=== PATIENT | female | born 1970 | race Caucasian/White ===

== ENCOUNTER 2016-12-27 11:22 | Emergency (ER) | payer OTHER ==
[2016-12-27 12:03] LABS: BASO % 0.7 % (0.0-1.0); CALCIUM LEVEL 9.3 MG/DL (8.5-10.1); CREATININE FOR GFR 1.7 MG/DL (0.55-1.02); EOS # 0.1 K/mm3 (0.0-0.50); EOS % 1.9 % (0.0-3.0); GLOMERULAR FILTRATION RATE 34.3 (>58); LARGE UNSTAINED CELL # 0.2 K/mm3 (0.0-0.4); LARGE UNSTAINED CELL % 3.6 % (0.0-4.0); LYMPH # 0.5 K/mm3 (1.5-4.5); LYMPH % 12.1 % (24.0-44.0); MEAN CORPUSCULAR HEMOGLOBIN 26.5 pg (27.0-33.0); MEAN CORPUSCULAR HGB CONC 32.5 g/dl (32.0-36.5); MEAN CORPUSCULAR VOLUME 81.4 fl (80.0-96.0); MONO # 0.4 K/mm3 (0.0-0.8); MONO % 8.6 % (0.0-5.0); NEUTROPHILS % 73.2 % (36.0-66.0); PLATELET COUNT, AUTOMATED 253 k/mm3 (150-450); POTASSIUM SERUM 3.7 MEQ/L (3.5-5.1); RED CELL DISTRIBUTION WIDTH 13.3 % (11.5-14.5); WHITE BLOOD COUNT 4.1 K/mm3 (4.0-10.0)
--- NOTE | 2016-12-27 12:21 | REP ---
Clinical: Shortness of breath . Comparison: None . Findings: The mediastinum and cardiac silhouette are stable and within normal limits for portable technique. The lung amor are clear without acute consolidation, effusion, or pneumothorax. Skeletal structures are intact. Impression: Normal portable chest x-ray Signed by Bakari Velazco MD 12/27/2016 12:13 P
[2016-12-27 12:53] LABS: ALBUMIN 3.6 GM/DL (3.2-5.2); BILIRUBIN,DIRECT 0.1 MG/DL (0.0-0.2); BILIRUBIN,TOTAL 0.4 MG/DL (0.2-1.0); TOTAL PROTEIN 7.2 GM/DL (6.4-8.2)
[2016-12-27] MEDS ORDERED: OSELTAMIVIR PHOSPHATE 75 MG CAP (TAMIFLU) As Ordered ONE (13:49)
--- NOTE | 2016-12-27 14:40 | EDDOCDS ---
Physician Documentation [facility] Name: Ebonie Ruiz Age: 46 yrs Sex: Female : 1970 Arrival Date: 12/27/2016 Time: 11:22 Bed 12 Private MD: Disposition: 12/27/16 14:22 Discharged to Home/Self Care. Impression: Influenza due to other identified influenza virus. - Condition is Stable. - Discharge Instructions: Influenza Adult, Influenza, Adult, [id number]. - Prescriptions for Tamiflu 75 mg Oral Capsule - take 1 capsule by ORAL route every 12 hours for 5 days; 10 capsule. - Medication Reconciliation, Local Pharmacy Hours form. - Follow up: Private Physician; When: your primary physician in [place] 24-48 hours recheck and recheck kidney function. - Problem is new. - Symptoms have improved. Historical: - Allergies: SULFA (SULFONAMIDES); - Home Meds: 1. none - PMHx: Non-Hodgkin's Lymphoma; - PSHx: none; - Social history: Smoking status: Patient states former smoker of tobacco. No barriers to communication noted, The patient speaks fluent [place], Speaks appropriately for age. - Family history: Not pertinent. - : The pt / caregiver states he / she is not on anticoagulants. Home medication list is obtained from the patient. - Exposure Risk Screening:: None identified. BACTERIOLOGIST MEDICAL: 12/27 11:35 LMP N/A - Irregular menses, due to chemotherapy hs1 Vital Signs: 11:35 BP 119 / 64; Pulse 91; Resp 18; Temp 97.2(O); Pulse Ox 98% ; Weight 101.15 kg / 223 hs1 lbs; Height 5 ft. 9 in. (175.26 cm); Pain 4/10; 14:30 BP 128 / 87; Pulse 88; Resp 18; Temp 97(O); Pulse Ox 100% ; Pain 3/10; cmb 11:35 Body Mass Index 32.93 (101.15 kg, 175.26 cm) hs1 MDM: 11:45 -Blood Culture (Adults Only), peripheral from different site, or from device/port/PICC sd1 etc. if present ordered. 11:45 Trimming Assembler/Pulse Ox/q 15 min VS ordered. sd1 11:45 IV Saline Lock ordered. sd1 11:45 Rhythm Strip to chart ordered. sd1 11:45 NS 0.9% 1000 ml IV at bolus once ordered. sd1 11:45 -Blood Culture Ordered. EDMS 11:45 B-Type Natiuretic Peptide Ordered. EDMS 11:45 Basic Metabolic Profile Ordered. EDMS 11:45 CBC with Diff Ordered. EDMS 11:45 Lactic Acid (Villalpando tube on ice) Ordered. EDMS 11:46 ECG WITH READING ER PHYS+CARDIAG ordered. EDMS 11:46 -Blood Culture (Adults Only), peripheral from different site, or from device/port/PICC lbd etc. if present complete. 11:48 Chest, 1 View Ordered. EDMS 11:55 BLOOD CULTURES Ordered. EDMS 12:11 Basic Metabolic Profile Reviewed. sd1 12:11 CBC with Diff Reviewed. sd1 12:35 B-Type Natiuretic Peptide Reviewed. sd1 12:35 Lactic Acid (Vill[place]pando tube on ice) Reviewed. sd1 12:35 Chest, 1 View Reviewed. sd1 12:37 -Influenza A&B Rapid Antigen - Nose Ordered. EDMS 12:42 LIVER PROFILE Ordered. EDMS 12:52 Basic Metabolic Profile Reviewed. sd1 12:52 NS 0.9% 1000 ml IV at bolus once ordered. sd1 12:58 Financial registration complete. mm15 13:30 Basic Metabolic Profile Reviewed. sd1 13:30 -Influenza A&B Rapid Antigen - Nose Reviewed. sd1 13:30 LIVER PROFILE Reviewed. sd1 13:31 Oseltamivir 75 mg PO once ordered. sd1 14:16 [facility] Payment Agreement was scanned into [employer] and attached to record. mm15 Administered Medications: 11:45 CANCELLED (Other Intervention Used): NS 0.9% 1000 ml IV at bolus once sd1 11:49 Drug: NS 0.9% 1000 ml [sodium chloride 0.9 % intravenous solution] Route: IV; Rate: hs1 bolus; Site: left antecubital; 14:39 Follow up: IV Status: Completed infusion; IV Intake: 1000ml hs1 13:00 Drug: NS 0.9% 1000 ml [sodium chloride 0.9 % injection solution] Route: IV; Rate: dsf bolus; Site: left antecubital; 14:39 Follow up: IV Status: Completed infusion; IV Intake: 1000ml hs1 13:55 Drug: Oseltamivir 75 mg [oseltamivir 75 mg capsule (1 caps)] Route: PO; hs1 Signatures: Dispatcher MedHost EDMS Mary Ann Asif MD MD sd1 Shelly Anand, Closet Builder Unit lbd Saumya Granados RN RN hs1 Carolann Shea mm15 Dee Wynn RN dsf The chart was reviewed and I authenticate all verbal orders and agree with the evaluation and treatment provided.Corrections: (The following items were deleted from the chart) 11:45 11:45 NS 0.9% 1000 ml IV at bolus once ordered. sd1 sd1 12:44 12:37 LIVER PROFILE+LAB ordered. EDMS EDMS 13:56 11:45 Oxygen at 4L/Min NC or Home dosage ordered. sd1 hs1 Attachments: 14:16 [facility] Payment Agreement mm15 MTDD
--- NOTE | 2016-12-27 14:40 | EDDOCDS ---
Nurse's Notes [facility] Name: Ebonie Ruiz Age: 46 yrs Sex: Female : 1970 Arrival Date: 12/27/2016 Time: : Bed 12 Private MD: Diagnosis: Influenza due to other identified influenza virus Presentation: 12/27 11:25 Presenting complaint: EMS states: eating breakfast at [employer] - called 911 because she hs1 wasn't feeling well. Has been sick for 2-3 days. Stomach off - dizziness. Diaphoretic per EMS. Low blood pressures per EMS. 100cc's IV NS given by EMS. Suicide/Homicide risk assessment- the patient denies having any suicidal and/or homicidal ideations and does not present with any other emotional, behavioral or mental health complaints. Status: Patient is not a consulting services project manager or dependent. Transition of care: patient was not received from another setting of care. Care prior to arrival: See EMS report. Saline lock initiated. Glucose check. 126 mg/dL. 11:25 Method Of Arrival: Ambulance hs1 11:25 Acuity: CHITRA Level 3 hs1 11:40 Adult Sepsis Screening: The patient does not have new or worsening altered mentation. hs1 Patient's respiratory rate is less than 22. Systolic blood pressure is greater than 100. Patient has a qSOFA score of 0- Negative Sepsis Screen. Triage Assessment: 11:37 General: Appears in no apparent distress, Behavior is cooperative. Pain: Location: achy hs1 all over. Pt Declines HIV testing. Neurological: Level of Consciousness is awake, alert, obeys commands. EENT: Reports nasal congestion nasal discharge. Cardiovascular: Capillary refill < 3 seconds Heart tones S1 S2 Edema is absent. Respiratory: Airway is patent Respiratory effort is even, unlabored, Respiratory pattern is regular, symmetrical, Breath sounds are clear bilaterally. GI: Abdomen is non- distended Bowel sounds present X 4 quads. Abd is soft and non tender X 4 quads. CONTINUOUS DRIER OPERATOR: 11:35 LMP N/A - Irregular menses, due to chemotherapy hs1 Historical: - Allergies: SULFA (SULFONAMIDES); - Home Meds: 1. none - PMHx: Non-Hodgkin's Lymphoma; - PSHx: none; - Social history: Smoking status: Patient states former smoker of tobacco. No barriers to communication noted, The patient speaks fluent Macedonian, Speaks appropriately for age. - Family history: Not pertinent. - : The pt / caregiver states he / she is not on anticoagulants. Home medication list is obtained from the patient. - Exposure Risk Screening:: None identified. Screenin:54 Screening information is obtained from the patient. Fall risk: No risks identified. hs1 Assistance ADL's: requires no assistance with activities of daily living. Abuse/DV Screen: The patient / caregiver reports he/she is: not in a situation that causes fear, pain or injury. Nutritional screening: No deficits noted. Advance Directives: There is no active DNR order. home support is adequate. Assessment: 12:40 General: Appears in no apparent distress, Behavior is appropriate for age, cooperative. hs1 Pain: Pain currently is 4 out of 10 on a pain scale. Quality of pain is described as aching. Neurological: No deficits noted. Respiratory: Airway is patent Respiratory effort is even, unlabored, Respiratory pattern is regular, symmetrical. GI: Abdomen is non- distended Denies vomiting. Derm: Skin is pink, warm & dry. normal. 13:55 General: Appears in no apparent distress, comfortable, Behavior is appropriate for age, hs1 cooperative. Pain: Denies pain. Neurological: No deficits noted. Respiratory: Airway is patent Respiratory effort is even, unlabored, Respiratory pattern is regular, symmetrical. Derm: Skin is pink, warm & dry. normal. 14:26 General: Appears in no apparent distress, comfortable, Behavior is appropriate for age, hs1 cooperative. Pain: Denies pain. Cardiovascular: Rhythm is regular. Respiratory: Airway is patent Respiratory effort is even, unlabored, Respiratory pattern is regular, symmetrical. GI: Abdomen is flat, non- distended. : up and ambulatory to the bathroom. Derm: Skin is pink, warm & dry. normal. 14:38 General: Appears in no apparent distress, comfortable, Behavior is appropriate for age, hs1 cooperative. Pain: Denies pain. Vital Signs: 11:35 BP 119 / 64; Pulse 91; Resp 18; Temp 97.2(O); Pulse Ox 98% ; Weight 101.15 kg; Height 5 hs1 ft. 9 in. (175.26 cm); Pain 4/10; 14:30 BP 128 / 87; Pulse 88; Resp 18; Temp 97(O); Pulse Ox 100% ; Pain 3/10; cmb 11:35 Body Mass Index 32.93 (101.15 kg, 175.26 cm) hs1 Vitals: 11:35 Log In Time N/A - ambulance arrival. hs1 ED Course: 11:23 Patient visited by Shelly Anand, Animal Caretaker Supervisor. lbd 11:23 Patient moved to Waiting lbd 11:23 Patient moved to 12 lbd 11:29 Triage Initiated hs1 11:37 Mary Ann Asif MD is Attending Physician. sd1 11:39 Maintain field IV. Dressing intact. Good blood return noted. Site clean & dry. Gauge & hs1 site: 18 gauge in left AC. 11:47 Patient visited by Mary Ann Asif MD. sd1 11:53 Lactic Acid (Villalpando tube on ice) Sent. hs1 11:53 -Blood Culture Sent. hs1 11:54 The patient / caregiver is instructed regarding the plan of care and ED course. hs1 12:09 EKG done. (by ED staff). Reviewed by Mary Ann Asif MD. cmb 12:12 Patient visited by Alicia Gage. cmb 12:23 Chest, 1 View Returned. EDMS 13:03 Patient visited by Saumya Granados, TRISTAN. hs1 13:03 Patient visited by Saumya Granados, TRISTAN. hs1 13:56 Patient visited by Saumya Granados, TRISTAN. hs1 14:16 [facility] Payment Agreement was scanned into [employer] and attached to record. mm15 14:30 Patient visited by Alicia Gage. cmb 14:38 Discontinued IV lock intact, bleeding controlled, pressure dressing applied, No hs1 redness/swelling at site. No procedures done that require assistance. Administered Medications: 11:45 CANCELLED (Other Intervention Used): NS 0.9% 1000 ml IV at bolus once sd1 11:49 Drug: NS 0.9% 1000 ml [sodium chloride 0.9 % intravenous solution] Route: IV; Rate: hs1 bolus; Site: left antecubital; 14:39 Follow up: IV Status: Completed infusion; IV Intake: 1000ml hs1 13:00 Drug: NS 0.9% 1000 ml [sodium chloride 0.9 % injection solution] Route: IV; Rate: dsf bolus; Site: left antecubital; 14:39 Follow up: IV Status: Completed infusion; IV Intake: 1000ml hs1 13:55 Drug: Oseltamivir 75 mg [oseltamivir 75 mg capsule (1 caps)] Route: PO; hs1 Intake: 14:39 IV: 1000.00ml; Total: 1000.00ml. hs1 14:39 IV: 1000.00ml; Total: 2000.00ml. hs1 Order Results: Lab Order: B-Type Natiuretic Peptide; SPEC'M 12/27/16 11:33 Test: BRAIN NATRIURETIC PEPTIDE; Value: 24.8; Range: <100; Units: PG/ML; Status: F Lab Order: Basic Metabolic Profile; SPEC'M 12/27/16 11:33 Test: GLUCOSE, FASTING; Value: 113; Range: 70-105; Abnormal: Above high normal; Units: MG/DL; Status: F Test: BLOOD UREA NITROGEN; Value: 22; Range: 7-18; Abnormal: Above high normal; Units: MG/DL; Status: F Test: CREATININE FOR GFR; Value: 1.70; Range: 0.55-1.02; Abnormal: Above high normal; Units: MG/DL; Status: F Test: GLOMERULAR FILTRATION RATE; Value: 34.3; Range: >58; Abnormal: Below low normal; Status: F Test: SODIUM LEVEL; Value: 142; Range: 136-145; Units: MEQ/L; Status: F Test: POTASSIUM SERUM; Value: 3.7; Range: 3.5-5.1; Units: MEQ/L; Status: F Test: CHLORIDE LEVEL; Value: 108; Range: 98-107; Abnormal: Above high normal; Units: MEQ/L; Status: F Test: CARBON DIOXIDE LEVEL; Value: 21; Range: 21-32; Units: MEQ/L; Status: F Test: ANION GAP; Value: 13; Range: 8-16; Units: MEQ/L; Status: F Test: CALCIUM LEVEL; Value: 9.3; Range: 8.5-10.1; Units: MG/DL; Status: F Test Note: ; Units are mL/min/1.73 m2 Chronic Kidney Disease Staging per NKF: Stage I & II GFR >=60 Normal to Mildly Decreased Stage III GFR 30-59 Moderately Decreased Stage IV GFR 15-29 Severely Decreased Stage V GFR <15 Very Little GFR Left ESRD GFR <15 on FISHING ROD MECHANIC Lab Order: CBC with Diff; SPEC'M 12/27/16 11:33 Test: WHITE BLOOD COUNT; Value: 4.1; Range: 4.0-10.0; Units: K/mm3; Status: F Test: RED BLOOD COUNT; Value: 4.97; Range: 4.00-5.40; Units: M/mm3; Status: F Test: HEMOGLOBIN; Value: 13.2; Range: 12.0-16.0; Units: g/dl; Status: F Test: HEMATOCRIT; Value: 40.5; Range: 36.0-47.0; Units: %; Status: F Test: MEAN CORPUSCULAR VOLUME; Value: 81.4; Range: 80.0-96.0; Units: fl; Status: F Test: MEAN CORPUSCULAR HEMOGLOBIN; Value: 26.5; Range: 27.0-33.0; Abnormal: Below low normal; Units: pg; Status: F Test: MEAN CORPUSCULAR HGB CONC; Value: 32.5; Range: 32.0-36.5; Units: g/dl; Status: F Test: RED CELL DISTRIBUTION WIDTH; Value: 13.3; Range: 11.5-14.5; Units: %; Status: F Test: PLATELET COUNT, AUTOMATED; Value: 253; Range: 150-450; Units: k/mm3; Status: F Test: NEUTROPHILS %; Value: 73.2; Range: 36.0-66.0; Abnormal: Above high normal; Units: %; Status: F Test: LYMPH %; Value: 12.1; Range: 24.0-44.0; Abnormal: Below low normal; Units: %; Status: F Test: MONO %; Value: 8.6; Range: 0.0-5.0; Abnormal: Above high normal; Units: %; Status: F Test: EOS %; Value: 1.9; Range: 0.0-3.0; Units: %; Status: F Test: BASO %; Value: 0.7; Range: 0.0-1.0; Units: %; Status: F Test: LARGE UNSTAINED CELL %; Value: 3.6; Range: 0.0-4.0; Units: %; Status: F Test: NEUTROPHILS #; Value: 3.0; Range: 1.8-7.7; Units: K/mm3; Status: F Test: LYMPH #; Value: 0.5; Range: 1.5-4.5; Abnormal: Below low normal; Units: K/mm3; Status: F Test: MONO #; Value: 0.4; Range: 0.0-0.8; Units: K/mm3; Status: F Test: EOS #; Value: 0.1; Range: 0.0-0.50; Units: K/mm3; Status: F Test: BASO #; Value: 0.0; Range: 0.0-0.2; Units: K/mm3; Status: F Test: LARGE UNSTAINED CELL #; Value: 0.2; Range: 0.0-0.4; Units: K/mm3; Status: F Lab Order: Lactic Acid (Villalpando tube on ice); SPEC'M 12/27/16 11:50 Test: LACTIC ACID SEPSIS PROTOCOL; Value: 1.1; Range: 0.4-2.0; Units: MMOL/L; Status: F Lab Order: -Influenza A&B Rapid Antigen - Nose; SPEC'M 12/27/16 11:33 Test: INFLUENZA A RAPID SCR by ICA; Value: INFLUENZA A RESULTS POSITIVE; Abnormal: Abnormal; Status: F Test: INFLUENZA A RAPID SCR by ICA; Value: Comments:; Status: F Test: INFLUENZA B RAPID SCR by ICA; Value: INFLUENZA B RESULTS NEGATIVE; Status: F Test Note: ; The Influenza test is a direct rapid immunoassay for the qualitative detection of Influenza viral antigen. Cell culture (Viral Culture) testing should be considered to confirm NEGATIVE results and to assist in detecting other viruses that can provide similar clinical symptoms. Please contact the lab within 24 hours ([phone]) if confirmatory testing is desired. Lab Order: LIVER PROFILE; SPEC'M 12/27/16 11:33 Test: AST/SGOT; Value: 36; Range: 15-37; Units: U/L; Status: F Test: ALT/SGPT; Value: 40; Range: 12-78; Units: U/L; Status: F Test: ALKALINE PHOSPHATASE; Value: 71; Range: 45-117; Units: U/L; Status: F Test: BILIRUBIN,TOTAL; Value: 0.4; Range: 0.2-1.0; Units: MG/DL; Status: F Test: BILIRUBIN,DIRECT; Value: 0.1; Range: 0.0-0.2; Units: MG/DL; Status: F Test: TOTAL PROTEIN; Value: 7.2; Range: 6.4-8.2; Units: GM/DL; Status: F Test: ALBUMIN; Value: 3.6; Range: 3.2-5.2; Units: GM/DL; Status: F Test: ALBUMIN/GLOBULIN RATIO; Value: 1.00; Range: 1.00-1.93; Status: F Radiology Order: Chest, 1 View Test: Chest, 1 View REASON FOR EXAMINATION: Shortness of Breath; Clinical: Shortness of breath .; ; Comparison: None .; ; Findings:; The mediastinum and cardiac silhouette are stable and within normal limits for; portable technique. The lung amor are clear without acute consolidation,; effusion, or pneumothorax. Skeletal structures are intact.; ; Impression:; Normal portable chest x-ray; ; ; Signed by; Bakari Velazco MD 12/27/2016 12:13 P; Outcome: 14:22 Discharge ordered by Provider. sd1 14:39 Discharge Assessment: Patient awake, alert and oriented x 3. No cognitive and/or hs1 functional deficits noted. Patient verbalized understanding of disposition instructions. patient administered narcotics - no. The following High Risk Discharge criteria are identified: None. Discharged to home ambulatory. Condition: stable. Discharge instructions given to patient, Instructed on discharge instructions, follow up and referral plans. medication usage, Demonstrated understanding of instructions, medications, Pt was receptive of discharge instructions/ teaching. Prescriptions given X 1. No special radiology studies were completed. Property sent home with patient. 14:39 Patient left the ED. hs1 Signatures: Dispatcher MedHost EDMS Mary Ann Asif MD MD sd1 Shelly Anand, Animal Caretaker Supervisor Unit lbd Saumya Granados RN RN hs1 Dee Wynn RN RN dsf Alicia Gage Marlynn mm15 MTDD
--- NOTE | 2016-12-28 19:05 | ECGEPIP ---
Stationary ECG Study [facility] - ED Test Date: 2016-12-27 Pat Name: NUPUR LIANG Department: Room: - Gender: F Supervisor Brake Repair: yvette : 1970 Requested By: Mary Ann Asif Order Number: [id number] Reading MD: Mary Ann Asif Measurements Intervals [place] Rate: 83 P: 52 WI: 141 QRS: 39 QRSD: 73 T: 23 QT: 377 QTc: 445 Interpretive Statements SINUS RHYTHM NONSPECIFIC T-WAVE ABNORMALITY NO PRIOR FOR COMPARISON Electronically Signed On 12-28-2016 19:05:12 EST by Mary Ann Asif
--- NOTE | 2016-12-29 15:40 | EDDOCDS ---
Physician Documentation [facility] Name: Ebonie Ruiz Age: 46 yrs Sex: Female : 1970 Arrival Date: 12/27/2016 Time: 11:22 Bed 12 Private MD: Disposition: 12/27/16 14:22 Discharged to Home/Self Care. Impression: Influenza due to other identified influenza virus. - Condition is Stable. - Discharge Instructions: Influenza Adult, Influenza, Adult, [id number]. - Prescriptions for Tamiflu 75 mg Oral Capsule - take 1 capsule by ORAL route every 12 hours for 5 days; 10 capsule. - Medication Reconciliation, Local Pharmacy Hours form. - Follow up: Private Physician; When: your primary physician in [place] 24-48 hours recheck and recheck kidney function. - Problem is new. - Symptoms have improved. Historical: - Allergies: SULFA (SULFONAMIDES); - Home Meds: 1. none - PMHx: Non-Hodgkin's Lymphoma; - PSHx: none; - Social history: Smoking status: Patient states former smoker of tobacco. No barriers to communication noted, The patient speaks fluent [place], Speaks appropriately for age. - Family history: Not pertinent. - : The pt / caregiver states he / she is not on anticoagulants. Home medication list is obtained from the patient. - Exposure Risk Screening:: None identified. 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 9 in. (175.26 cm); Pain 4/10; 14:30 BP 128 / 87; Pulse 88; Resp 18; Temp 97(O); Pulse Ox 100% ; Pain 3/10; cmb 11:35 Body Mass Index 32.93 (101.15 kg, 175.26 cm) hs1 MDM: 11:45 -Blood Culture (Adults Only), peripheral from different site, or from device/port/PICC sd1 etc. if present ordered. 11:45 Hair Mixer/Pulse Ox/q 15 min VS ordered. sd1 11:45 IV Saline Lock ordered. sd1 11:45 Rhythm Strip to chart ordered. sd1 11:45 NS 0.9% 1000 ml IV at bolus once ordered. sd1 11:45 -Blood Culture Ordered. EDMS 11:45 B-Type Natiuretic Peptide Ordered. EDMS 11:45 Basic Metabolic Profile Ordered. EDMS 11:45 CBC with Diff Ordered. EDMS 11:45 Lactic Acid (Villalpando tube on ice) Ordered. EDMS 11:46 ECG WITH READING ER PHYS+CARDIAG ordered. EDMS 11:46 -Blood Culture (Adults Only), peripheral from different site, or from device/port/PICC lbd etc. if present complete. 11:48 Chest, 1 View Ordered. EDMS 11:55 BLOOD CULTURES Ordered. EDMS 12:11 Basic Metabolic Profile Reviewed. sd1 12:11 CBC with Diff Reviewed. sd1 12:35 B-Type Natiuretic Peptide Reviewed. sd1 12:35 Lactic Acid (Villalpando tube on ice) Reviewed. sd1 12:35 Chest, 1 View Reviewed. sd1 12:37 -Influenza A&B Rapid Antigen - Nose Ordered. EDMS 12:42 LIVER PROFILE Ordered. EDMS 12:52 Basic Metabolic Profile Reviewed. sd1 12:52 NS 0.9% 1000 ml IV at bolus once ordered. sd1 12:58 Financial registration complete. mm15 13:30 Basic Metabolic Profile Reviewed. sd1 13:30 -Influenza A&B Rapid Antigen - Nose Reviewed. sd1 13:30 LIVER PROFILE Reviewed. sd1 13:31 Oseltamivir 75 mg PO once ordered. sd1 14:16 [facility] Payment Agreement was scanned into [employer] and attached to record. mm15 12/29 08:14 T-Sheet-- Draft Copy was scanned into [employer] and attached to record. lg 08:15 ECG/EKG was scanned into [employer] and attached to record. lg Administered Medications: 12/27 11:45 CANCELLED (Other Intervention Used): NS 0.9% 1000 ml IV at bolus once sd1 11:49 Drug: NS 0.9% 1000 ml [sodium chloride 0.9 % intravenous solution] Route: IV; Rate: hs1 bolus; Site: left antecubital; 14:39 Follow up: IV Status: Completed infusion; IV Intake: 1000ml hs1 13:00 Drug: NS 0.9% 1000 ml [sodium chloride 0.9 % injection solution] Route: IV; Rate: dsf bolus; Site: left antecubital; 14:39 Follow up: IV Status: Completed infusion; IV Intake: 1000ml hs1 13:55 Drug: Oseltamivir 75 mg [oseltamivir 75 mg capsule (1 caps)] Route: PO; hs1 Signatures: Dispatcher [employer] EDMS Mary Ann Asif MD MD sd1 Shelly Anand, Technical Manager Unit lbd Lisa Dos Santos, Reg Reg lg Saumya Granados RN RN hs1 Carolann Shea mm15 Dee Wynn RN dsf The chart was reviewed and I authenticate all verbal orders and agree with the evaluation and treatment provided.Corrections: (The following items were deleted from the chart) 11:45 11:45 NS 0.9% 1000 ml IV at bolus once ordered. sd1 sd1 12:44 12:37 LIVER PROFILE+LAB ordered. EDMS EDMS 13:56 11:45 Oxygen at 4L/Min NC or Home dosage ordered. sd1 hs1 Attachments: 14:16 [facility] Payment Agreement mm15 12/29 08:14 T-Sheet-- Draft Copy lg 08:15 ECG/EKG lg Chart Complete MTDD
--- NOTE | 2016-12-29 15:40 | EDDOCDS ---
Physician Documentation [facility] Name: Ebonie Ruiz Age: 46 yrs Sex: Female : 1970 Arrival Date: 12/27/2016 Time: 11:22 Bed 12 Private MD: Disposition: 12/27/16 14:22 Discharged to Home/Self Care. Impression: Influenza due to other identified influenza virus. - Condition is Stable. - Discharge Instructions: Influenza Adult, Influenza, Adult, [id number]-Rqby. - Prescriptions for Tamiflu 75 mg Oral Capsule - take 1 capsule by ORAL route every 12 hours for 5 days; 10 capsule. - Medication Reconciliation, Local Pharmacy Hours form. - Follow up: Private Physician; When: your primary physician in [place] 24-48 hours recheck and recheck kidney function. - Problem is new. - Symptoms have improved. Historical: - Allergies: SULFA (SULFONAMIDES); - Home Meds: 1. none - PMHx: Non-Hodgkin's Lymphoma; - PSHx: none; - Social history: Smoking status: Patient states former smoker of tobacco. No barriers to communication noted, The patient speaks fluent Grenadian, Speaks appropriately for age. - Family history: Not pertinent. - : The pt / caregiver states he / she is not on anticoagulants. Home medication list is obtained from the patient. - Exposure Risk Screening:: None identified. 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 9 in. (175.26 cm); Pain 4/10; 14:30 BP 128 / 87; Pulse 88; Resp 18; Temp 97(O); Pulse Ox 100% ; Pain 3/10; cmb 11:35 Body Mass Index 32.93 (101.15 kg, 175.26 cm) hs1 MDM: 11:45 -Blood Culture (Adults Only), peripheral from different site, or from device/port/PICC sd1 etc. if present ordered. 11:45 Players Assistant/Pulse Ox/q 15 min VS ordered. sd1 11:45 IV Saline Lock ordered. sd1 11:45 Rhythm Strip to chart ordered. sd1 11:45 NS 0.9% 1000 ml IV at bolus once ordered. sd1 11:45 -Blood Culture Ordered. EDMS 11:45 B-Type Natiuretic Peptide Ordered. EDMS 11:45 Basic Metabolic Profile Ordered. EDMS 11:45 CBC with Diff Ordered. EDMS 11:45 Lactic Acid (Villalpando tube on ice) Ordered. EDMS 11:46 ECG WITH READING ER PHYS+CARDIAG ordered. EDMS 11:46 -Blood Culture (Adults Only), peripheral from different site, or from device/port/PICC lbd etc. if present complete. 11:48 Chest, 1 View Ordered. EDMS 11:55 BLOOD CULTURES Ordered. EDMS 12:11 Basic Metabolic Profile Reviewed. sd1 12:11 CBC with Diff Reviewed. sd1 12:35 B-Type Natiuretic Peptide Reviewed. sd1 12:35 Lactic Acid (Villalpando tube on ice) Reviewed. sd1 12:35 Chest, 1 View Reviewed. sd1 12:37 -Influenza A&B Rapid Antigen - Nose Ordered. EDMS 12:42 LIVER PROFILE Ordered. EDMS 12:52 Basic Metabolic Profile Reviewed. sd1 12:52 NS 0.9% 1000 ml IV at bolus once ordered. sd1 12:58 Financial registration complete. mm15 13:30 Basic Metabolic Profile Reviewed. sd1 13:30 -Influenza A&B Rapid Antigen - Nose Reviewed. sd1 13:30 LIVER PROFILE Reviewed. sd1 13:31 Oseltamivir 75 mg PO once ordered. sd1 14:16 [facility] Payment Agreement was scanned into [employer] and attached to record. mm15 12/29 08:14 T-Sheet-- Draft Copy was scanned into [employer] and attached to record. lg 08:15 ECG/EKG was scanned into [employer] and attached to record. lg Administered Medications: 12/27 11:45 CANCELLED (Other Intervention Used): NS 0.9% 1000 ml IV at bolus once sd1 11:49 Drug: NS 0.9% 1000 ml [sodium chloride 0.9 % intravenous solution] Route: IV; Rate: hs1 bolus; Site: left antecubital; 14:39 Follow up: IV Status: Completed infusion; IV Intake: 1000ml hs1 13:00 Drug: NS 0.9% 1000 ml [sodium chloride 0.9 % injection solution] Route: IV; Rate: dsf bolus; Site: left antecubital; 14:39 Follow up: IV Status: Completed infusion; IV Intake: 1000ml hs1 13:55 Drug: Oseltamivir 75 mg [oseltamivir 75 mg capsule (1 caps)] Route: PO; hs1 Signatures: Dispatcher [employer] EDMS Mary Ann Asif MD MD sd1 Shelly Anand, Data Integrity Analyst Unit lbd Lisa Dos Santos, Reg Reg lg Saumya Granados RN RN hs1 Carolann Shea mm15 Dee Wynn RN dsf The chart was reviewed and I authenticate all verbal orders and agree with the evaluation and treatment provided.Corrections: (The following items were deleted from the chart) 11:45 11:45 NS 0.9% 1000 ml IV at bolus once ordered. sd1 sd1 12:44 12:37 LIVER PROFILE+LAB ordered. EDMS EDMS 13:56 11:45 Oxygen at 4L/Min NC or Home dosage ordered. sd1 hs1 Attachments: 14:16 [facility] Payment Agreement mm15 12/29 08:14 T-Sheet-- Draft Copy lg 08:15 ECG/EKG lg Chart Complete MTDD
--- NOTE | 2016-12-29 15:41 | EDDOCDS ---
Nurse's Notes [facility] Name: Nupur Ruiz Age: 46 yrs Sex: Female : 1970 Arrival Date: 12/27/2016 Time: : Bed 12 Private MD: Diagnosis: Influenza due to other identified influenza virus Presentation: 12/27 11:25 Presenting complaint: EMS states: eating breakfast at [employer] - called 911 because she hs1 wasn't feeling well. Has been sick for 2-3 days. Stomach off - dizziness. Diaphoretic per EMS. Low blood pressures per EMS. 100cc's IV NS given by EMS. Suicide/Homicide risk assessment- the patient denies having any suicidal and/or homicidal ideations and does not present with any other emotional, behavioral or mental health complaints. Status: Patient is not a media services specialist or dependent. Transition of care: patient was not received from another setting of care. Care prior to arrival: See EMS report. Saline lock initiated. Glucose check. 126 mg/dL. 11:25 Method Of Arrival: Ambulance hs1 11:25 Acuity: CHITRA Level 3 hs1 11:40 Adult Sepsis Screening: The patient does not have new or worsening altered mentation. hs1 Patient's respiratory rate is less than 22. Systolic blood pressure is greater than 100. Patient has a qSOFA score of 0- Negative Sepsis Screen. Triage Assessment: 11:37 General: Appears in no apparent distress, Behavior is cooperative. Pain: Location: achy hs1 all over. Pt Declines HIV testing. Neurological: Level of Consciousness is awake, alert, obeys commands. EENT: Reports nasal congestion nasal discharge. Cardiovascular: Capillary refill < 3 seconds Heart tones S1 S2 Edema is absent. Respiratory: Airway is patent Respiratory effort is even, unlabored, Respiratory pattern is regular, symmetrical, Breath sounds are clear bilaterally. GI: Abdomen is non- distended Bowel sounds present X 4 quads. Abd is soft and non tender X 4 quads. 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 none - PMHx: Non-Hodgkin's Lymphoma; - PSHx: none; - Social history: Smoking status: Patient states former smoker of tobacco. No barriers to communication noted, The patient speaks fluent [place]ine[place], Speaks appropriately for age. - Family history: Not pertinent. - : The pt / caregiver states he / she is not on anticoagulants. Home medication list is obtained from the patient. - Exposure Risk Screening:: None identified. Screenin:54 Screening information is obtained from the patient. Fall risk: No risks identified. hs1 Assistance ADL's: requires no assistance with activities of daily living. Abuse/DV Screen: The patient / caregiver reports he/she is: not in a situation that causes fear, pain or injury. Nutritional screening: No deficits noted. Advance Directives: There is no active DNR order. home support is adequate. Assessment: 12:40 General: Appears in no apparent distress, Behavior is appropriate for age, cooperative. hs1 Pain: Pain currently is 4 out of 10 on a pain scale. Quality of pain is described as aching. Neurological: No deficits noted. Respiratory: Airway is patent Respiratory effort is even, unlabored, Respiratory pattern is regular, symmetrical. GI: Abdomen is non- distended Denies vomiting. Derm: Skin is pink, warm & dry. normal. 13:55 General: Appears in no apparent distress, comfortable, Behavior is appropriate for age, hs1 cooperative. Pain: Denies pain. Neurological: No deficits noted. Respiratory: Airway is patent Respiratory effort is even, unlabored, Respiratory pattern is regular, symmetrical. Derm: Skin is pink, warm & dry. normal. 14:26 General: Appears in no apparent distress, comfortable, Behavior is appropriate for age, hs1 cooperative. Pain: Denies pain. Cardiovascular: Rhythm is regular. Respiratory: Airway is patent Respiratory effort is even, unlabored, Respiratory pattern is regular, symmetrical. GI: Abdomen is flat, non- distended. : up and ambulatory to the bathroom. Derm: Skin is pink, warm & dry. normal. 14:38 General: Appears in no apparent distress, comfortable, Behavior is appropriate for age, hs1 cooperative. Pain: Denies pain. Vital Signs: 11:35 BP 119 / 64; Pulse 91; Resp 18; Temp 97.2(O); Pulse Ox 98% ; Weight 101.15 kg; Height 5 hs1 ft. 9 in. (175.26 cm); Pain 4/10; 14:30 BP 128 / 87; Pulse 88; Resp 18; Temp 97(O); Pulse Ox 100% ; Pain 3/10; cmb 11:35 Body Mass Index 32.93 (101.15 kg, 175.26 cm) hs1 Vitals: 11:35 Log In Time N/A - ambulance arrival. hs1 ED Course: 11:23 Patient visited by Shelly Anand, Skates Operator. lbd 11:23 Patient moved to Waiting lbd 11:23 Patient moved to 12 lbd 11:29 Triage Initiated hs1 11:37 Mary Ann Asif MD is Attending Physician. sd1 11:39 Maintain field IV. Dressing intact. Good blood return noted. Site clean & dry. Gauge & hs1 site: 18 gauge in left AC. 11:47 Patient visited by Mary Ann Asif MD. sd1 11:53 Lactic Acid (Villalpando tube on ice) Sent. hs1 11:53 -Blood Culture Sent. hs1 11:54 The patient / caregiver is instructed regarding the plan of care and ED course. hs1 12:09 EKG done. (by ED staff). Reviewed by Mary Ann Asif MD. cmb 12:12 Patient visited by Alicia Gage. cmb 12:23 Chest, 1 View Returned. EDMS 13:03 Patient visited by Saumya Granados, TRISTAN. hs1 13:03 Patient visited by Saumya Granados, TRISTAN. hs1 13:56 Patient visited by Saumya Granados, RN. hs1 14:16 PENDING SALE TO [facility] Payment Agreement was scanned into [employer] and attached to record. mm15 14:30 Patient visited by Alicia Gage. cmb 14:38 Discontinued IV lock intact, bleeding controlled, pressure dressing applied, No hs1 redness/swelling at site. No procedures done that require assistance. 14:47 Patient name changed from Nupur\S\\S\Clement\S\ to Nupur\S\ \S\Clement. EDMS 12/28 19:40 EKG-ADULT Returned. EDMS 12/29 08:14 T-Sheet-- Draft Copy was scanned into [employer] and attached to record. lg 08:15 ECG/EKG was scanned into [employer] and attached to record. lg Administered Medications: 12/27 11:45 CANCELLED (Other Intervention Used): NS 0.9% 1000 ml IV at bolus once sd1 11:49 Drug: NS 0.9% 1000 ml [sodium chloride 0.9 % intravenous solution] Route: IV; Rate: hs1 bolus; Site: left antecubital; 14:39 Follow up: IV Status: Completed infusion; IV Intake: 1000ml hs1 13:00 Drug: NS 0.9% 1000 ml [sodium chloride 0.9 % injection solution] Route: IV; Rate: dsf bolus; Site: left antecubital; 14:39 Follow up: IV Status: Completed infusion; IV Intake: 1000ml hs1 13:55 Drug: Oseltamivir 75 mg [oseltamivir 75 mg capsule (1 caps)] Route: PO; hs1 Intake: 14:39 IV: 1000.00ml; Total: 1000.00ml. hs1 14:39 IV: 1000.00ml; Total: 2000.00ml. hs1 Order Results: Lab Order: -Blood Culture; SPEC'M 12/27/16 11:50 Test: BLOOD CULTURE; Value: DATE POSITIVE DETECTED 12/28/16; Status: F Test: BLOOD CULTURE; Value: EXTERNAL GS (REQUIRED!!!) GRAM POSITIVE COCCI IN CLUSTERS; Status: F Test: BLOOD CULTURE; Value: GRAM STAIN CALLED BY ROSHNI; Status: F Test: BLOOD CULTURE; Value: GRAM STAIN CALLED TO ARSENIO BRITTON; Status: F Test: BLOOD CULTURE; Value: DATE GRAM STAIN CALLED 12/28/16; Status: F Test: BLOOD CULTURE; Value: TIME GRAM STAIN CALLED 0710; Status: F Lab Order: B-Type Natiuretic Peptide; SPEC'M 12/27/16 11:33 Test: BRAIN NATRIURETIC PEPTIDE; Value: 24.8; Range: <100; Units: PG/ML; Status: F Lab Order: Basic Metabolic Profile; SPEC'M 12/27/16 11:33 Test: GLUCOSE, FASTING; Value: 113; Range: 70-105; Abnormal: Above high normal; Units: MG/DL; Status: F Test: BLOOD UREA NITROGEN; Value: 22; Range: 7-18; Abnormal: Above high normal; Units: MG/DL; Status: F Test: CREATININE FOR GFR; Value: 1.70; Range: 0.55-1.02; Abnormal: Above high normal; Units: MG/DL; Status: F Test: GLOMERULAR FILTRATION RATE; Value: 34.3; Range: >58; Abnormal: Below low normal; Status: F Test: SODIUM LEVEL; Value: 142; Range: 136-145; Units: MEQ/L; Status: F Test: POTASSIUM SERUM; Value: 3.7; Range: 3.5-5.1; Units: MEQ/L; Status: F Test: CHLORIDE LEVEL; Value: 108; Range: 98-107; Abnormal: Above high normal; Units: MEQ/L; Status: F Test: CARBON DIOXIDE LEVEL; Value: 21; Range: 21-32; Units: MEQ/L; Status: F Test: ANION GAP; Value: 13; Range: 8-16; Units: MEQ/L; Status: F Test: CALCIUM LEVEL; Value: 9.3; Range: 8.5-10.1; Units: MG/DL; Status: F Test Note: ; Units are mL/min/1.73 m2 Chronic Kidney Disease Staging per NKF: Stage I & II GFR >=60 Normal to Mildly Decreased Stage III GFR 30-59 Moderately Decreased Stage IV GFR 15-29 Severely Decreased Stage V GFR <15 Very Little GFR Left ESRD GFR <15 on MANAGER [facility] Lab Order: CBC with Diff; SPEC'M 12/27/16 11:33 Test: WHITE BLOOD COUNT; Value: 4.1; Range: 4.0-10.0; Units: K/mm3; Status: F Test: RED BLOOD COUNT; Value: 4.97; Range: 4.00-5.40; Units: M/mm3; Status: F Test: HEMOGLOBIN; Value: 13.2; Range: 12.0-16.0; Units: g/dl; Status: F Test: HEMATOCRIT; Value: 40.5; Range: 36.0-47.0; Units: %; Status: F Test: MEAN CORPUSCULAR VOLUME; Value: 81.4; Range: 80.0-96.0; Units: fl; Status: F Test: MEAN CORPUSCULAR HEMOGLOBIN; Value: 26.5; Range: 27.0-33.0; Abnormal: Below low normal; Units: pg; Status: F Test: MEAN CORPUSCULAR HGB CONC; Value: 32.5; Range: 32.0-36.5; Units: g/dl; Status: F Test: RED CELL DISTRIBUTION WIDTH; Value: 13.3; Range: 11.5-14.5; Units: %; Status: F Test: PLATELET COUNT, AUTOMATED; Value: 253; Range: 150-450; Units: k/mm3; Status: F Test: NEUTROPHILS %; Value: 73.2; Range: 36.0-66.0; Abnormal: Above high normal; Units: %; Status: F Test: LYMPH %; Value: 12.1; Range: 24.0-44.0; Abnormal: Below low normal; Units: %; Status: F Test: MONO %; Value: 8.6; Range: 0.0-5.0; Abnormal: Above high normal; Units: %; Status: F Test: EOS %; Value: 1.9; Range: 0.0-3.0; Units: %; Status: F Test: BASO %; Value: 0.7; Range: 0.0-1.0; Units: %; Status: F Test: LARGE UNSTAINED CELL %; Value: 3.6; Range: 0.0-4.0; Units: %; Status: F Test: NEUTROPHILS #; Value: 3.0; Range: 1.8-7.7; Units: K/mm3; Status: F Test: LYMPH #; Value: 0.5; Range: 1.5-4.5; Abnormal: Below low normal; Units: K/mm3; Status: F Test: MONO #; Value: 0.4; Range: 0.0-0.8; Units: K/mm3; Status: F Test: EOS #; Value: 0.1; Range: 0.0-0.50; Units: K/mm3; Status: F Test: BASO #; Value: 0.0; Range: 0.0-0.2; Units: K/mm3; Status: F Test: LARGE UNSTAINED CELL #; Value: 0.2; Range: 0.0-0.4; Units: K/mm3; Status: F Lab Order: Lactic Acid (Villalpando tube on ice); [facility] 12/27/16 11:50 Test: LACTIC ACID SEPSIS PROTOCOL; Value: 1.1; Range: 0.4-2.0; Units: MMOL/L; Status: F Lab Order: BLOOD CULTURES; [facility] 12/27/16 12:27 Test: BLOOD CULTURE; Value: No growth after 24 hours . All specimens observed; Status: F Test: BLOOD CULTURE; Value: for 5 days. Results final at that time.; Status: F Test: BLOOD CULTURE; Value: No Growth after 48 hours. All Specimens observed; Status: F Test: BLOOD CULTURE; Value: for 7 days. Results final at that time.; Status: F Lab Order: -Influenza A&B Rapid Antigen - Nose; SPEC'M 12/27/16 11:33 Test: INFLUENZA A RAPID SCR by ICA; Value: INFLUENZA A RESULTS POSITIVE; Abnormal: Abnormal; Status: F Test: INFLUENZA A RAPID SCR by ICA; Value: Comments:; Status: F Test: INFLUENZA B RAPID SCR by ICA; Value: INFLUENZA B RESULTS NEGATIVE; Status: F Test Note: ; The Influenza test is a direct rapid immunoassay for the qualitative detection of Influenza viral antigen. Cell culture (Viral Culture) testing should be considered to confirm NEGATIVE results and to assist in detecting other viruses that can provide similar clinical symptoms. Please contact the lab within 24 hours ([phone]) if confirmatory testing is desired. Lab Order: LIVER PROFILE; SPEC'M 12/27/16 11:33 Test: AST/SGOT; Value: 36; Range: 15-37; Units: U/L; Status: F Test: ALT/SGPT; Value: 40; Range: 12-78; Units: U/L; Status: F Test: ALKALINE PHOSPHATASE; Value: 71; Range: 45-117; Units: U/L; Status: F Test: BILIRUBIN,TOTAL; Value: 0.4; Range: 0.2-1.0; Units: MG/DL; Status: F Test: BILIRUBIN,DIRECT; Value: 0.1; Range: 0.0-0.2; Units: MG/DL; Status: F Test: TOTAL PROTEIN; Value: 7.2; Range: 6.4-8.2; Units: GM/DL; Status: F Test: ALBUMIN; Value: 3.6; Range: 3.2-5.2; Units: GM/DL; Status: F Test: ALBUMIN/GLOBULIN RATIO; Value: 1.00; Range: 1.00-1.93; Status: F Radiology Order: Chest, 1 View Test: Chest, 1 View REASON FOR EXAMINATION: Shortness of Breath; Clinical: Shortness of breath .; ; Comparison: None .; ; Findings:; The mediastinum and cardiac silhouette are stable and within normal limits for; portable technique. The lung amor are clear without acute consolidation,; effusion, or pneumothorax. Skeletal structures are intact.; ; Impression:; Normal portable chest x-ray; ; ; Signed by; Bakari Velazco MD 12/27/2016 12:13 P; Radiology Order: EKG-ADULT Test: EKG-ADULT REASON FOR EXAMINATION: weakness; Stationary ECG Study; [facility] - ED; ; Test Date: 2016-12-27; Pat Name: NUPUR RUIZ Department:; Room: -; Gender: F Executive Producer Promos: yvette; : 1970 Requested By: Mary Ann Asif; Order Number: [id number] Reading MD: Mary Ann Asif; Measurements; Intervals [place]; Rate: 83 P: 52; [place]: 141 QRS: 39; QRSD: 73 T: 23; QT: 377; QTc: 445; Interpretive Statements; SINUS RHYTHM; NONSPECIFIC T-WAVE ABNORMALITY; NO PRIOR FOR COMPARISON; Electronically Signed On 12-28-2016 19:05:12 EST by Mary Ann Asif; Outcome: 14:22 Discharge ordered by Provider. sd1 14:39 Discharge Assessment: Patient awake, alert and oriented x 3. No cognitive and/or hs1 functional deficits noted. Patient verbalized understanding of disposition instructions. patient administered narcotics - no. The following High Risk Discharge criteria are identified: None. Discharged to home ambulatory. Condition: stable. Discharge instructions given to patient, Instructed on discharge instructions, follow up and referral plans. medication usage, Demonstrated understanding of instructions, medications, Pt was receptive of discharge instructions/ teaching. Prescriptions given X 1. No special radiology studies were completed. Property sent home with patient. 14:39 Patient left the ED. hs1 Signatures: Dispatcher [employer] EDMS Mary Ann Asif MD MD sd1 Shelly Anand, Skates Operator Unit lbd Lisa Dos Santos, Clemente Reg Saumya Little RN RN hs1 Dee Wynn RN RN dsf [place], Alicia cmb Shea, Marlynn mm15 Chart Complete MTDD
== END 2016-12-27 14:39 | disposition home or self-care (01) ==
LOC: M ED 11:22
DX: J09.X9 Influenza due to identified novel influenza A virus with other manifestations (principal); C85.90 Non-Hodgkin lymphoma, unspecified, unspecified site; Z87.891 Personal history of nicotine dependence; Z88.2 Allergy status to sulfonamides